=== PATIENT | female | born 1970 | race Caucasian/White ===

== ENCOUNTER 2021-10-19 18:27 | Emergency (ER) | payer MEDICARE, OTHER ==
[~2021-10-19] VITALS: Ht 162.6 cm; Wt 85.7 kg
[~2021-10-19 18:27] MED LIST: Amitriptyline H10 MG; Amlodipine Bes2.5 MG; BACLOFEN5 M1; BASAGLAR K100 UNIT/3 SC; BUSP5; FLUO10; GABA100; INSULANI; INSULIN AS100 UNIT/8 SC; LANTUS SOL100 UNIT/1 SC; NOVOLOG FL100 UNIT/3 SC; NOVOLOG100 UNIT/2
== END 2021-10-19 21:10 | disposition home or self-care (01) ==
LOC: ER 18:27
DX: S92.325A Nondisplaced fracture of second metatarsal bone, left foot, initial encounter for closed fracture (principal); S92.215A Nondisplaced fracture of cuboid bone of left foot, initial encounter for closed fracture; W01.0XXA Fall on same level from slipping, tripping and stumbling without subsequent striking against object, initial encounter; X50.1XXA Overexertion from prolonged static or awkward postures, initial encounter; E10.22 Type 1 diabetes mellitus with diabetic chronic kidney disease; N18.6 End stage renal disease; J45.909 Unspecified asthma, uncomplicated; Z88.2 Allergy status to sulfonamides; Z88.8 Allergy status to other drugs, medicaments and biological substances; Z88.1 Allergy status to other antibiotic agents; Z91.038 Other insect allergy status; Z91.040 Latex allergy status; Z88.5 Allergy status to narcotic agent; Z91.018 Allergy to other foods; Z79.899 Other long term (current) drug therapy; Z79.4 Long term (current) use of insulin
CPT/HCPCS: 73610; 73630; A9270

== ENCOUNTER 2021-10-22 07:59 | Emergency (ER) | payer MEDICARE, OTHER ==
[~2021-10-22] VITALS: Ht 167.6 cm; Wt 81.7 kg
[2021-10-22] MEDS ORDERED: CEPH500 PO (10:07)
== END 2021-10-22 10:48 | disposition home or self-care (01) ==
LOC: ER 07:59
DX: S92.215A Nondisplaced fracture of cuboid bone of left foot, initial encounter for closed fracture (principal); S92.325A Nondisplaced fracture of second metatarsal bone, left foot, initial encounter for closed fracture; S93.335A Other dislocation of left foot, initial encounter; E11.22 Type 2 diabetes mellitus with diabetic chronic kidney disease; N18.6 End stage renal disease; E11.40 Type 2 diabetes mellitus with diabetic neuropathy, unspecified; Z91.030 Bee allergy status; Z88.1 Allergy status to other antibiotic agents; Z88.5 Allergy status to narcotic agent; Z91.040 Latex allergy status; Z88.8 Allergy status to other drugs, medicaments and biological substances; Z91.018 Allergy to other foods; Z79.4 Long term (current) use of insulin
CPT/HCPCS: 73630

== ENCOUNTER 2022-02-27 12:26 | Inpatient (IN) | payer MEDICARE, OTHER ==
[~2022-02-27] VITALS: Ht 152.4 cm; Wt 85.1 kg
[~2022-02-27 12:26] MED LIST changes: -Amitriptyline H10 MG; +Amitriptyline H10 MG PO; -BACLOFEN5 M1; +BACLOFEN5 M1 PO; -BUSP5; +BUSP5 PO; +CEPH500 PO; -FLUO10; +FLUO10 PO
[2022-02-27 13:50] LABS: Calcium, Ionized (POC) 1.17 mmol/L (1.10-1.46); Chloride (POC) 111 mmol/L (98-108); Creatinine (POC) 5.6 mg/dL (0.6-1.0); Glucose (ISTAT POC) >700 mg/dL (70-99); Hemoglobin (POC) 13.9 g/dL (12.0-16.0); Potassium (POC) 4.9 mmol/L (3.5-5.5); Sodium (POC) 146 mmol/L (135-148); Total CO2 (POC) 15 mmol/L (21-32)
[2022-02-27 13:53] LABS: Source, Urine Clean Catch
[2022-02-27 13:59] LABS: BASOPHILS ABSOLUTE AUTO 0.01 K/mm3 (0.00-0.23); BASOPHILS PERCENT AUTO 0 % (0-2); EOSINOPHILS PERCENT AUTO 0 % (0-6); Hematocrit 43.2 % (33.0-51.0); Hemoglobin 13.1 g/dL (11.5-16.0); IMMATURE GRAN PERCENT AUTO 1 % (0-1); LYMPHOCYTES ABSOLUTE AUTO 1.64 K/mm3 (0.84-5.20); LYMPHOCYTES PERCENT AUTO 10 % (21-46); MONOCYTES ABSOLUTE AUTO 0.97 K/mm3 (0.16-1.47); MONOCYTES PERCENT AUTO 6 % (4-13); Mean Corpuscular HGB 29.8 pg (26.0-34.0); Mean Corpuscular HGB Conc 30.3 g/dL (31.5-36.5); Mean Corpuscular Volume 98 fL (80-100); NEUTROPHILS ABSOLUTE AUTO 13.08 K/mm3 (1.96-9.15); NEUTROPHILS PERCENT AUTO 83 % (41-73); Platelet Count 290 K/mm3 (150-400); RDW Coefficient Variation 14.1 % (11.7-14.2); Red Blood Cell Count 4.39 M/mm3 (3.80-5.20)
[2022-02-27 14:10] LABS: Bilirubin, Urine Neg (Neg); Blood, Urine 5+ (Neg); Glucose Qualitative, Urine 4+ (Neg); Ketones, Urine 2+ (Neg); Leukocyte Esterase, Urine Neg (Neg); Nitrite, Urine Neg (Neg); Protein, Urine 3+ (Neg); Specific Gravity, Urine 1.015 (1.003-1.022); Urobilinogen, Urine NORM (Normal)
[2022-02-27 14:16] LABS: International Normalized Ratio 1.07; Prothrombin Time Results 11.2 Sec (9.7-11.5)
[2022-02-27 14:22] LABS: Appearance, Urine Hazy (Clear); Color, Urine Pale Yellow (P-Yellow)
[2022-02-27 14:26] LABS: Amorphous Light (0-Heavy); Bacteria Mod /hpf; Red Blood Cells, Urine 0-2 /hpf (0-2); Squamous Epithelial Cells Rare /hpf (Few)
[2022-02-27 14:34] LABS: Base Excess Venous -17.1 mmol/L; Bicarbonate Venous 12.1 mmol/L (24.0-30.0); PCO2 Venous 39.4 mmHg (38-42); pH Blood Venous 7.11 (7.34-7.37)
[2022-02-27 14:36] LABS: Albumin, Blood 3.4 g/dL (3.4-5.0); Albumin/Globulin Ratio 0.7 (0.8-1.8); Bilirubin, Total 0.5 mg/dL (0.1-1.0); Calcium, Blood 9.4 mg/dL (8.5-10.1); Creatinine, Blood 5.56 mg/dL (0.40-1.00); Globulin, Blood 4.8 g/dL (2.2-4.0); Potassium, Blood 4.8 mmol/L (3.5-5.5); Total Protein, Blood 8.2 g/dL (6.4-8.2)
[2022-02-27 14:50] LABS: Creatine Kinase MB Index 0.8 (0.0-4.0)
[2022-02-27 16:22] LABS: Bun/Creatinine Ratio 23.7 (12.0-20.0); Calcium, Blood 8.9 mg/dL (8.5-10.1); Creatinine, Blood 5.41 mg/dL (0.40-1.00); Potassium, Blood 4.9 mmol/L (3.5-5.5)
--- NOTE | 2022-02-27 18:22 | NUR ---
PT TO ICU ROOM 3 AT 1635. PT ARRIVES ON 6 UNITS/HR INSULIN. PT MOANING, UNABLE TO ANSWER QUESTIONS OR FOLLOW COMMANDS. PER DR NORIEGA, PT IS NORMALLY ALERT AND ORIENTED-PT SEEN IN CLINIC BY DR NORIEGA. PT HAS BLACK BILE AROUND MOUTH AND TONGUE COATED, PT HAD ONE SMALL COFFEE GROUND EMESIS ON ARRIVAL. HYPOACTIVE BOWEL TONES, PAIN WITH PALPATION, L>R. TEMP JACOBSON PATENT AND DRAINING TO GRAVITY. CURRENT TEMP 97.0-ATTEMPTING TO WARM WITH BLANKETS. PT PULLING CARDIAC LEADS OFF, GOWN OFF, AND PULLED IV OUT-UNABLE TO VERBALLY DIRECT. PT PLACED IN BILATERAL SOFT WRIST RESTRAINTS, ATTEMPTING TO ESTABLISH ADDITIONAL IV ACCESS. PROTONIX GTT PLACED ON STANDBY UNTIL IV ACCESS ESTABLISHED. PT HAS RED RING AROUND BUTTOCK WITH BLISTERING, APPEARS TO BE FROM PROLONGED SITTING ON TOILET, PRESSURE INJURY TO RIGHT OUTER ANKLE WITH VARIOUS SCABS AND BRUISING. VSS AT THIS TIME. SEE FULL ADMISSION ASSESSMENT.
[2022-02-27 18:58] LABS: Bun/Creatinine Ratio 25.2 (12.0-20.0); Calcium, Blood 8.4 mg/dL (8.5-10.1); Creatinine, Blood 5.07 mg/dL (0.40-1.00)
[2022-02-27 19:10] LABS: Phosphorus, Blood 7.8 mg/dL (2.5-4.9)
[2022-02-27 20:30] LABS: Glucose, Blood 788 mg/dL (70-99)
[2022-02-27 21:59] LABS: Source, Urine Foley catheter
[2022-02-27 22:01] LABS: Bilirubin, Urine Neg (Neg); Blood, Urine 5+ (Neg); Glucose Qualitative, Urine 4+ (Neg); Ketones, Urine 2+ (Neg); Leukocyte Esterase, Urine Neg (Neg); Nitrite, Urine Neg (Neg); Protein, Urine 2+ (Neg); Specific Gravity, Urine 1.015 (1.003-1.022); Urobilinogen, Urine NORM (Normal)
[2022-02-27 22:08] LABS: Appearance, Urine Hazy (Clear); Color, Urine Yellow (P-Yellow)
[2022-02-27 22:09] LABS: Amorphous Mod (0-Heavy); Bacteria Few /hpf; Mucus Light (0-Heavy); Red Blood Cells, Urine 0-2 /hpf (0-2); Squamous Epithelial Cells Few /hpf (Few)
[2022-02-27 22:44] LABS: Glucose, Blood 641 mg/dL (70-99)
[2022-02-28 00:17] LABS: Bun/Creatinine Ratio 22.8 (12.0-20.0); Calcium, Blood 8.6 mg/dL (8.5-10.1); Creatinine, Blood 5.56 mg/dL (0.40-1.00)
[2022-02-28 01:27] LABS: Glucose, Blood 533 mg/dL (70-99)
[2022-02-28 03:59] LABS: BASOPHILS ABSOLUTE AUTO 0.01 K/mm3 (0.00-0.23); BASOPHILS PERCENT AUTO 0 % (0-2); EOSINOPHILS PERCENT AUTO 0 % (0-6); Hematocrit 34.7 % (33.0-51.0); Hemoglobin 11.7 g/dL (11.5-16.0); IMMATURE GRAN ABSOLUTE AUTO 0.03 K/mm3 (0.00-0.10); IMMATURE GRAN PERCENT AUTO 0 % (0-1); LYMPHOCYTES ABSOLUTE AUTO 1.32 K/mm3 (0.84-5.20); LYMPHOCYTES PERCENT AUTO 11 % (21-46); MONOCYTES ABSOLUTE AUTO 0.77 K/mm3 (0.16-1.47); MONOCYTES PERCENT AUTO 6 % (4-13); Mean Corpuscular HGB 30.2 pg (26.0-34.0); Mean Corpuscular HGB Conc 33.7 g/dL (31.5-36.5); Mean Platelet Volume 11.4 fL (9.1-12.4); NEUTROPHILS ABSOLUTE AUTO 10.07 K/mm3 (1.96-9.15); NEUTROPHILS PERCENT AUTO 83 % (41-73); Platelet Count 215 K/mm3 (150-400); RDW Standard Deviation 45.8 fL (35.1-46.3); Red Blood Cell Count 3.88 M/mm3 (3.80-5.20)
[2022-02-28 04:01] LABS: Mean Corpuscular Volume 89 fL (80-100)
[2022-02-28 04:20] LABS: Bun/Creatinine Ratio 23.3 (12.0-20.0); Calcium, Blood 8.6 mg/dL (8.5-10.1); Creatinine, Blood 5.57 mg/dL (0.40-1.00)
--- NOTE | 2022-02-28 06:08 | NUR ---
SHIFT SUMMARY: PT. REMAINED STABLE OVERNIGHT, LEVO WAS STARTED FOR LOW BP BUT WAS ABLE TO BE TURNED OFF THIS AM. PT. IS STILL VERY CONFUSED AND UNABLE TO ANSWER ANY ORIENTATION QUESTIONS. PT. HAD MINIMAL URINE OUTPUT IN JACOBSON CATHETER WHICH CORRELATES WITH LABS. PT. IS SATTING ABOVE 95% ON RA. INSULIN DRIP IS STILL ON AT 6, BUT BLOOD GLUCOSE HAS BEEN TRENDING DOWN AT A STABLE RATE AND IS NOW BELOW 500. PT. IS RESTING COMFORTABLY AT THIS TIME.
[2022-02-28 08:36] LABS: Bun/Creatinine Ratio 21.9 (12.0-20.0); Calcium, Blood 8.3 mg/dL (8.5-10.1); Creatinine, Blood 5.65 mg/dL (0.40-1.00); Potassium, Blood 3.7 mmol/L (3.5-5.5)
--- NOTE | 2022-02-28 09:48 | NUR ---
ASSUMED CARE OF PT. PT ALERT TO NAME, FAILS TO TRACK MOVEMENT, RESPOND TO QUESTIONS OR FOLLOW COMMANDS. PT REMAINS IN BILATERAL SOFT WRIST RESTRAINTS D/T PULLING AT LINES/CORDS AND DISROBING. INSULIN GTT @ 5 UNITS/HR, D51/2 STARTED PER EMAR ORDER. PROTONIX GTT INFUSING, NO EVIDENCE OF GI BLEED AT THIS TIME. PLAN FOR DIALYSIS CATH PLACEMENT WITH DIALYSIS THIS AFTERNOON. VSS AT THIS TIME. SEE FULL SHIFT ASSESSMENT.
[2022-02-28 10:04] LABS: Creatine Kinase MB 12.2 ng/mL (0.0-3.6)
[2022-02-28 10:27] LABS: Creatine Kinase MB Index 0.6 (0.0-4.0)
--- NOTE | 2022-02-28 12:31 | NUR ---
PT'S SISTER (DANIEL) CALLED REQUESTING UPDATE ON PT'S STATUS. PER SISTER, SHE AND PT HAVE DISCUSSED DIALYSIS EXTENSIVELY AND PT HAS BEEN CLEAR IN SAYING THAT SHE DOES NOT WANT [facility] [employer] [employer] DIALYSIS.
[2022-02-28 12:40] LABS: Bun/Creatinine Ratio 20.9 (12.0-20.0); Creatinine, Blood 5.97 mg/dL (0.40-1.00)
--- NOTE | 2022-02-28 16:20 | NUR ---
PT MORE ALERT THIS AFTERNOON, PT NODS HEAD YES/NO IN RESPONSE TO QUESTIONS. PICC PLACED TO RITO, TRIALYSIS CATH PLACED OVER RIGHT FEMORAL CENTRAL LINE. DIALYSIS NOTIFIED OF SUCCESSFUL LINE PLACEMENT.
--- NOTE | 2022-02-28 17:35 | NUR ---
SHIFT SUMMARY PT'S MENTATION IMPROVING. ABLE TO TAKE BILATERAL SOFT WRIST RESTRAINTS OFF PT IS FOLLOWING DIRECTIONS AND IS NOT PULLING AT LINES/CORDS/DRESSING. PT IS STILL NOT RESPONDING VERBALLY BUT IS FOLLOWING COMMANDS AND NODDING YES/NO. WEAK COUGH WITH MODERATE THICK SPUTUM, ATTEMPTING TO COLLECT FOR SPUTUM SAMPLE. PT IS CURRENTLY RECEIVING DIALYSIS, TOLERATING WELL. D5W 1/2NS @ 125 ML/HR, INSULIN @4 UNITS/HR, PROTONIX GTT@ 10 ML/HR. VSS T/O SHIFT. WILL REPORT TO ONCOMING NURSE.
--- NOTE | 2022-02-28 18:22 | NUR ---
Pt in ICU some eye opening tryin to open eyes and reposnd. Ashen and frail. Question family struggling pt stated she did not want [facility] dialysis. Review of her needs by sphysician and staff. P may benefit from some treatment and care. Hope is she may need it temporarily goal is for enough improvment that she can participate in decision. Goal is better comfort and increased mental statsu and metabolic stability. will review code status and support family.
[2022-02-28 19:11] LABS: Albumin, Blood 2.4 g/dL (3.4-5.0); Anion Gap 7 mmol/L (6-16); Blood Urea Nitrogen 71 mg/dL (8-24); Bun/Creatinine Ratio 18.6 (12.0-20.0); CO2, Blood 29 mmol/L (21-32); Calcium, Blood 7.9 mg/dL (8.5-10.1); Chloride, Blood 117 mmol/L (98-108); Creatinine, Blood 3.81 mg/dL (0.40-1.00); Glomerular Filtration Rate 14 (60-); Glucose, Blood 190 mg/dL (70-99); Potassium, Blood 3.6 mmol/L (3.5-5.5); Sodium, Blood 153 mmol/L (136-145)
[2022-02-28 19:12] LABS: Phosphorus, Blood 3.4 mg/dL (2.5-4.9)
--- NOTE | 2022-02-28 20:12 | NUR ---
SHIFT ASSESSMENT ASSUMED CARE OF PT @ 1900. REPORT RECEIVED FROM CHUCK CHAUHAN. PT ALERT IN BED RECEIVING DIALYSIS, FOLLOWING SIMPLE COMMANDS, NOT RESPONDING VERBALLY. PT TOLERATING ORAL CARE, BUT UNABLE TO OBTAIN A SPUTUM SAMPLE AT THIS TIME. TEMP PROBE JACOBSON PATENT, DRAINING SCANT AMNT OF YELLOW URINE. NO BM. D5W 1/2NS @ 125, INSULIN @ 3U/HR, AND PROTONIX GTT @ 10ML/HR. VSS. WILL MONITOR CLOSELY.
[2022-03-01 04:13] LABS: BASOPHILS ABSOLUTE AUTO 0.01 K/mm3 (0.00-0.23); BASOPHILS PERCENT AUTO 0 % (0-2); EOSINOPHILS ABSOLUTE AUTO 0.04 K/mm3 (0.00-0.68); EOSINOPHILS PERCENT AUTO 0 % (0-6); Hematocrit 28.6 % (33.0-51.0); Hemoglobin 9.6 g/dL (11.5-16.0); IMMATURE GRAN ABSOLUTE AUTO 0.02 K/mm3 (0.00-0.10); IMMATURE GRAN PERCENT AUTO 0 % (0-1); LYMPHOCYTES ABSOLUTE AUTO 2.87 K/mm3 (0.84-5.20); LYMPHOCYTES PERCENT AUTO 30 % (21-46); MONOCYTES ABSOLUTE AUTO 0.54 K/mm3 (0.16-1.47); MONOCYTES PERCENT AUTO 6 % (4-13); Mean Corpuscular HGB 30.4 pg (26.0-34.0); Mean Corpuscular HGB Conc 33.6 g/dL (31.5-36.5); Mean Corpuscular Volume 91 fL (80-100); Mean Platelet Volume 10.9 fL (9.1-12.4); NEUTROPHILS ABSOLUTE AUTO 5.95 K/mm3 (1.96-9.15); NEUTROPHILS PERCENT AUTO 63 % (41-73); Platelet Count 114 K/mm3 (150-400); RDW Coefficient Variation 14.4 % (11.7-14.2); RDW Standard Deviation 47.8 fL (35.1-46.3); Red Blood Cell Count 3.16 M/mm3 (3.80-5.20); White Blood Cell Count 9.43 K/mm3 (4.00-11.30)
[2022-03-01 04:28] LABS: Bun/Creatinine Ratio 17.7 (12.0-20.0); Creatinine, Blood 5.14 mg/dL (0.40-1.00); Magnesium, Blood 2.5 mg/dL (1.6-2.4); Phosphorus, Blood 4.2 mg/dL (2.5-4.9); Potassium, Blood 3.2 mmol/L (3.5-5.5)
--- NOTE | 2022-03-01 06:03 | NUR ---
SHIFT SUMMARY PT REMAINS ALERT TO PERSON, SLOWLY CLEARING THE NIGHT CARRIED ON. WILL RESPOND WITH 1-2 WORDS, MOVING EXTREMITIES MORE, REMAINS WEAK. INSULIN GTT CONTINUES PT IS NPO, CURRENTLY @ 5U/HR. INDIRA parker 200ML UO THIS SHIFT. NO BM. NO OTHER ACUTE CHANGES NOTED. WILL MONITOR CLOSELY.
--- NOTE | 2022-03-01 07:31 | NUR ---
TOOK OVER CARE OF PT AT 0710, PT HAS A PROTONIX GTT, D5 1/2 NS RUNNING AT 125, AND INSULIN GTT AT 5UNITS. PT RESTING ON RA.
--- NOTE | 2022-03-01 08:29 | NUR ---
NOTIFEID OF POTASSIUM LAB.
--- NOTE | 2022-03-01 18:33 | NUR ---
SUMMARY NEURO: PT FOLLOWING COMMANDS IN ALL EXTREMETIES. NODS HEAD TO QUESTIONS WITH SOME SHORT WORDS. PT MORE LETHARGIC AFTER DIALYSIS. PER PT THEY HAVE MS, BUT WALKS AT BASELINE. LUNGS; BASES DIMINISHED BUT ON RA. CARDIAC: NSR TO ST. +1 EDEMA BLE. PULSES PRESENT. GI: PT IS NPO, HYPOACTIVE BOWEL SOUNDS. SCANT RED BLOOD FROM RECTUM- NOTIFIED. ; JACOBSON IN PLACE. 275ML TOTAL OUTPUT FOR THIS SHIFT. PT HAD DIALYSIS TODAY. SKIN: RT ANKLE WOUND HAS AN ESCHAR PLATE FORMED, SURROUNDED BY A RING OF PURULENT DRAINAGE, REDNESS AND SWELLING. CHG BATH COMPLETED. INSULIN DRIP AND D51/2 NS AT 125 CONTINUED. VERIFIED WITH PROVIDER TO NOT BRIDGE OR ADJUST FLUIDS. PROTONIX GTT CONTINUES. NO POTASSIUM REPLACED.
--- NOTE | 2022-03-01 20:58 | NUR ---
ASSUMED CARE. ALERT, NON-VERBAL, OCCATIONALLY WILL NOD HEAD YES OR NO. DOES NOT ALWAYS FOLLOW COMMANDS. GRIPPED HAND ON THE RIGHT ONLY, DOES NOT MOVE BLE. HAS HX:MS WHEELCHAIR BOUND. TRACKS YOU AROUND THE ROOM. BS 228, INSULIN AT 6 UNITS. D5 1/2 NS AT 125ML/HR. PROTONIX GTT AT 10ML/HR. LS CLEAR MILD COUGH, DRY. SINUS ON MONIOR. BLISTER NOTED TO BILATERAL BUTTOCKS. DRESSING APPLILED TO RIGHT ANKLE AREA DUE TO SCABBED RED ULCER. REPOSITIONED, ELEVATED BLE ON LIMBS. WILL CONTINUE TO MONITOR.
[2022-03-02 03:30] LABS: BASOPHILS ABSOLUTE AUTO 0.01 K/mm3 (0.00-0.23); BASOPHILS PERCENT AUTO 0 % (0-2); EOSINOPHILS ABSOLUTE AUTO 0.24 K/mm3 (0.00-0.68); EOSINOPHILS PERCENT AUTO 3 % (0-6); Hematocrit 27.5 % (33.0-51.0); Hemoglobin 8.9 g/dL (11.5-16.0); IMMATURE GRAN ABSOLUTE AUTO 0.04 K/mm3 (0.00-0.10); IMMATURE GRAN PERCENT AUTO 1 % (0-1); LYMPHOCYTES ABSOLUTE AUTO 2.69 K/mm3 (0.84-5.20); LYMPHOCYTES PERCENT AUTO 32 % (21-46); MONOCYTES ABSOLUTE AUTO 0.45 K/mm3 (0.16-1.47); MONOCYTES PERCENT AUTO 5 % (4-13); Mean Corpuscular HGB 29.7 pg (26.0-34.0); Mean Corpuscular HGB Conc 32.4 g/dL (31.5-36.5); Mean Corpuscular Volume 92 fL (80-100); Mean Platelet Volume 11.2 fL (9.1-12.4); NEUTROPHILS ABSOLUTE AUTO 4.89 K/mm3 (1.96-9.15); NEUTROPHILS PERCENT AUTO 59 % (41-73); Platelet Count 96 K/mm3 (150-400); RDW Coefficient Variation 13.7 % (11.7-14.2); RDW Standard Deviation 46.2 fL (35.1-46.3); White Blood Cell Count 8.32 K/mm3 (4.00-11.30)
[2022-03-02 03:46] LABS: Calcium, Blood 7.9 mg/dL (8.5-10.1); Creatinine, Blood 3.75 mg/dL (0.40-1.00); Phosphorus, Blood 2.5 mg/dL (2.5-4.9); Potassium, Blood 3.4 mmol/L (3.5-5.5)
--- NOTE | 2022-03-02 05:58 | NUR ---
SHIFT SUMMARY: ALERT, FLAT AFFECT, NON-VERBAL AT TIMES, SPEAKS 1-2 WORDS OCCATIONALLY. MS AT BASELINE, DOES NOT MOVE BLE. MINIMAL MOVEMENT TO BUE. FOLLOWS DIRECTIONS. LS CLEAR, ON RA. RESP E/U. SINUS WITH RATE OF 90'S. STARTED TO BECOME HYPERTENSIVE AROUND 0400, HYDRALAZINE GIVEN. ABD SOFT, NON-TENDER. SCANT AMOUNT OF BLOODY DRAINAGE FROM ANUS, NO BM. JACOBSON PATENT OUTPUT 550. SKIN WITH BLISTERS STILL INTACT ON BOTTOM, AND PRESSURE ULCER TO RIGHT ANKLE, DRESSING INTACT. POTASSIUM REPLACEMENT INFUSING FOR POTASSIUM OF 3.4. BLOOD SUGARS DOWN TO THE 150-160'S ON 1-2 UNITS OF INSULIN GTT. PROTONIX STILL INFUSING ALONG WITH D5 1/2 NS. WILL REPORT TO DAYSHIFT.
--- NOTE | 2022-03-02 10:00 | NUR ---
PT ALERT, ORIENTED TO SELF AND CAN FOLLOW SOME SIMPLE COMMANDS. ONLY SAYS ONE WORD HERE AND THERE OTHERWISE HAS A BLANK STARE. SOMETIMES SHE GIGGLES AT RN WITH NO VERBAL INTERACTION. STILL ON D5 1/2 NS WITH INSULIN GTT. WILL BE EXPLORING DOBHOFF OPTION TODAY PT IS NOT SAFE TO EAT OR DRINK YET.
[2022-03-02 12:56] LABS: Hematocrit 28.9 % (33.0-51.0); Hemoglobin 9.4 g/dL (11.5-16.0)
--- NOTE | 2022-03-02 18:26 | NUR ---
SUMMARY PT ALERT AND ORIENTED TO PERSON. WILL ONLY STATE ONE WORD EVERY NOW AND THEN. TITRATED OFF INSULIN GTT AND D5 1/2 NS. DOBHOFF PLACED TODAY FOR NUTRITION AND FREE WATER. PT NOT ABLE TO SWALLOW YET, WHEN GIVEN WATER SHE HOLDS IT IN MOUTH BEFORE EVENTUALLY SWALLOWING. PT GOT DIALYSIS TODAY. NO OTHER CHANGES.
--- NOTE | 2022-03-02 19:43 | NUR ---
DOCTOR OMAIRA CALLED TO CLARIFY INSULIN ORDERS. CONTINUE HUMALOG 5 UNITS Q6 HR ORDERED. AM LABS ORDERED.
--- NOTE | 2022-03-02 20:38 | NUR ---
PATIENT AWAKE, MAKES EYE CONTACT SAID ART WHEN I INTRODUCED MYSELF, BUT ONLY LAUGHED WHEN ASKED OTHER QUESTIONS. SAYING OUCH WHEN LEGS REPOSITIONED. GENERALIZED WEAKNESS. INCONSISTENT WITH FOLLOWING DIRECTIONS. PROTONIX DRIP CONTINUES. DOBHOFF IN PLACE TO RIGHT NARE AT 72, WITH GLUCERNA AT 20 CC/HR AND WATER 100 CC Q4HR GOAL RATE IS 40 CC/HR. TRIALYSIS CATH RIGHT GROIN DRESSING CD&I. BILAT WRIST RESTRAINTS OFF, PATIENT NOT REACHING FOR LINES AND TUBES AT THIS TIME.
--- NOTE | 2022-03-02 22:45 | NUR ---
DOCTOR CAROLYN IN TO SEE PATIENT, CHANGED WATER FLUSH PER DOBHOFF TO 150 CC Q4HR.
--- NOTE | 2022-03-03 00:24 | NUR ---
PATIENT AWAKE APPEARS TO BE WATCHING TV. PATIENT NOT CONSISTENT WITH FOLLOWING DIRECTIONS. TUBE FEEDING INCREASED TO GOAL RATE OF 40 CC/HR.
[2022-03-03 01:08] LABS: HBSAG SCREEN Negative (Negative); HCV AB <0.1 (0.0-0.9); HEP A AB, IGM Negative (Negative); HEP B CORE AB, IGM Negative (Negative)
--- NOTE | 2022-03-03 01:20 | NUR ---
PATIENT COUGHING AND GAGGING, MAKING SOUNDS LIKE SHE IS CLEARING HER THROAT. ZOFRAN GIVEN AND TUBE FEEDING RATE DECREASED TO 30 CC/HR
--- NOTE | 2022-03-03 03:04 | NUR ---
PATIENT STARTING TO GAG AND APPEARS TO HAVE NAUSEA. PATIENT NODDING YES WHEN ASKED IF FEELING SICK TO HER STOMACH. TUBE FEEDING TURNED DOWN TO 20 CC/HR.
[2022-03-03 04:20] LABS: BASOPHILS PERCENT AUTO 0 % (0-2); EOSINOPHILS PERCENT AUTO 5 % (0-6); Hematocrit 27.6 % (33.0-51.0); IMMATURE GRAN ABSOLUTE AUTO 0.05 K/mm3 (0.00-0.10); IMMATURE GRAN PERCENT AUTO 1 % (0-1); LYMPHOCYTES ABSOLUTE AUTO 1.88 K/mm3 (0.84-5.20); LYMPHOCYTES PERCENT AUTO 29 % (21-46); MONOCYTES ABSOLUTE AUTO 0.55 K/mm3 (0.16-1.47); MONOCYTES PERCENT AUTO 8 % (4-13); Mean Corpuscular HGB 29.7 pg (26.0-34.0); Mean Corpuscular HGB Conc 32.6 g/dL (31.5-36.5); Mean Corpuscular Volume 91 fL (80-100); Mean Platelet Volume 11.7 fL (9.1-12.4); NEUTROPHILS PERCENT AUTO 58 % (41-73); Platelet Count 89 K/mm3 (150-400); RDW Coefficient Variation 13.2 % (11.7-14.2); RDW Standard Deviation 44.1 fL (35.1-46.3); Red Blood Cell Count 3.03 M/mm3 (3.80-5.20); White Blood Cell Count 6.58 K/mm3 (4.00-11.30)
[2022-03-03 04:41] LABS: Anion Gap 7 mmol/L (6-16); Blood Urea Nitrogen 38 mg/dL (8-24); Bun/Creatinine Ratio 14.9 (12.0-20.0); CO2, Blood 27 mmol/L (21-32); Calcium, Blood 8.1 mg/dL (8.5-10.1); Chloride, Blood 109 mmol/L (98-108); Creatinine, Blood 2.55 mg/dL (0.40-1.00); Glomerular Filtration Rate 22 (60-); Glucose, Blood 281 mg/dL (70-99); Phosphorus, Blood 1.9 mg/dL (2.5-4.9); Sodium, Blood 143 mmol/L (136-145)
--- NOTE | 2022-03-03 06:29 | NUR ---
SUMMARY PATIENT AWAKE, FOLLOWING SIMPLE DIRECTIONS. AT TIMES VERBALIZING 1-2 WORDS, BUT CONSISTENT. NO MOVEMENT SEEN IN LEGS. VERY WEAK ARMS. DOBHOFF IN PLACE WITH GLUCERNA AT 20 CC/HR, WITH WATER 150 CC Q4HR. ATTEMPTING TO INCREASE TUBE FEEDING AND PATIENT START HAVING NAUSEA WITH GAGGING AND COUGHING. FREQUENT ORAL CARE DONE T/O NIGHT, CONTINUES TO HAVE BLACK ON BACK OF TONGUE. INSULIN DRIP REMAINS OFF. PROTONIX DRIP CONTINUES.
--- NOTE | 2022-03-03 07:25 | NUR ---
ASSUMED CARE: PT RESTING QUIELTY IN BED. SINUS TAC AT 102 ON TELE. ON RA. DOBHOFF IN PLACE WITH TF AT 20 DUE TO NOT TOLERATING INCREASED RATE. PT OCCASIONALLY SAYS WORDS. THUMBS UP TO STAFF DURING BEDSIDE REPORT. RESIDENT AT BEDSIDE AT THIS TIME. DISCUSSED WITH HIM THAT PT DOES NOT TOLERATE INCREASED TF RATE. ALSO ASKED ABOUT STATUS CHANGE WHICH HE SAID HE WOULD REVIEW.
--- NOTE | 2022-03-03 10:33 | NUR ---
DRS ROUNDED ON PT AND STATE THAT PT'S MENTAL STATUS HAS IMPROVED SINCE YESTERDAY. PT ASKING IF SHE CAN EAT. DRS ORDERED SPEECH EVALUATION TO DETERMINE DUE TO PT'S DOBHOFF PLACEMENT AND HISTORY OF ENCEPHALOPATHY. DRS AWARE THAT PT WAS UNABLE TO TOLERATE ADVANCEMENT OF TUBE FEED. DIETITIAN CONSULT DONE. SPOKE WITH DIETITIAN ABOUT CHANGES TO BE MADE TO TF. DIETITIAN REQUESTS LEAVING DOBHOFF IN PLACE UNTIL WE KNOW IF PT CAN TOLERATE ORAL INTAKE. DIALYSIS AT BEDSIDE AT THIS TIME.
--- NOTE | 2022-03-03 18:13 | NUR ---
PT TRANSFERRED TO PCU 4 VIA CHAIR. REPORT GIVEN TO DIOGENES WOODS. NO ACUTE NEEDS OR CONCERNS AT THIS TIME
--- NOTE | 2022-03-03 19:12 | NUR ---
TRANSFER SUMMARY: PATIENT IS IN NO SIGN OF ACUTE DISTRESS. PATIENT IS RESTING IN RECLINER, SCD'S CURRENLTY OFF AT THIS TIME, RECOMMEND TO NIGHT FOR PLACEMENT IF APPROPRATE. PATIENT TF RUNNING, PROTONIX DRIP AND ZOSYN. PATIENT HAS BEEN STABLE VS WOOD, IS ON RA CURELNTY AT 100%. CHG BATH WAS DONE BY ICU NURSE FOR THE DAY. PICC IN RITO AND RIGHT FEMORAL DIALYSIS TEM PORT CDI. PATIENT ALERT AND ORIENTED X1, PATIENT DENIES CHEST PAIN OR SOB AT THIS TIME. WILL CONTINUE TO MONITOR UNTIL SHIFT CHANGE.
--- NOTE | 2022-03-04 00:23 | NUR ---
UPDATE PCT CALLED THIS RN TO ROOM. DOBHOFF WAS PULLED OUT BY PATIENT. CALL PLACED TO RESIDENT REGARDING WHETHER OR NOT TO PLACE NEW DOBHOFF AND TO UPDATE WITH BLOOD SUGAR RESULTS >300. PLAN IS TO LEAVE DOBHOFF OUT AT THIS TIME AND REEVALUATE TOMORROW WITH DIETARY TO ADJUST TF OR FOR SPEECH THERAPY TO EVALUATE PATIENT AGAIN. MEDIACTED PER EMAR FOR 0000 INSULIN COVERAGE
[2022-03-04 05:26] LABS: Magnesium, Blood 2.6 mg/dL (1.6-2.4)
[2022-03-04 05:27] LABS: Bun/Creatinine Ratio 15.5 (12.0-20.0); Calcium, Blood 9.3 mg/dL (8.5-10.1); Creatinine, Blood 2.65 mg/dL (0.40-1.00); Phosphorus, Blood 1.3 mg/dL (2.5-4.9); Potassium, Blood 3.7 mmol/L (3.5-5.5)
--- NOTE | 2022-03-04 05:46 | NUR ---
SHIFT SUMMARY PATIENT ALERT, ORIENTED x1. ABLE TO ANSWER YES/NO QUESTIONS AND SPEAKS IN SHORT SENTENCES. PATIENT WILL LAUGH AND TALK ABOUT SOMETHING OFF TOPIC DURING SOME CONVERSATION. PATIENT DOES NOT KEEP ATTENTION ON CONVERSATION FOR LONG. PLEASANT AND COOPERATIVE WITH CARE. VSS, PATIENT REMAINS ON RA WITH O2 SAT >90%. HR 100s THIS SHIFT. PATIENT PULLED DOBHOFF OUT OVER NIGHT, SEE PREVIOUS NOTE. PATIENT UP TO CHAIR ALL SHIFT SHE STATES IT IS MORE COMFORTABLE FOR HER. JACOBSON IN PLACE DRAINING DARK YELLOW URINE TO GRAVITY. NO OTHER SIGNIFICANT CHANGES THIS SHIFT, WILL REPORT TO DAY SHIFT RN.
--- NOTE | 2022-03-04 07:45 | NUR ---
AM ASSESSMENT: Pt sitting up in chair at this time. Oriented to self only. Does answer some yes and no questions but also answers some questions with inappropriate answers. VSS. LS clear. BT positive. PUlses palp. HR reg. Dialysis port to R groin. PICC to R upper arm with protonix gtt running. Pt appears comfortable. Will place tab alarm. Call light in reach. Will monitor.
--- NOTE | 2022-03-04 13:17 | NUR ---
UPDATE: Pt worked with ST this am and was cleared for pureed diet. Tolerating well. PT was given bed bath earlier this AM with chlorahexadine wipes per protocol. Pt also had small brown BM that was soft and formed. No other changes at this time. Pt still up in chair and Tab alarm on. Call light in reach.
--- NOTE | 2022-03-04 18:17 | NUR ---
SHIFT SUMMARY: Pt has remained A/O to self only throughout the day. Does follow directions but does not answer orientation questions appropriatly. VSS throughout this shift. Pt was started on a puree, nectar thick diet. Pt eating only about 5-10% of lunch and dinner. CBG coverage per orders. Pt was able to get up to BSC with 2 person assist today and had small, brown, formed BM. Alvarado cath draining clear, yellow urine. No changes in R groin dialysis site or R PICC line site. Protonix gtt running. Pt has seemed very withdrawn and depressed. Pt has stated multiple times today that her dog recently. Will continue to provide emotional support No other changes this shift. Will report to night RN. Bed alarm on and call light in reach.
[2022-03-05 04:55] LABS: Hematocrit 27.1 % (33.0-51.0)
[2022-03-05 05:16] LABS: Magnesium, Blood 2.5 mg/dL (1.6-2.4)
[2022-03-05 05:17] LABS: Albumin, Blood 2.3 g/dL (3.4-5.0); Anion Gap 9 mmol/L (6-16); Blood Urea Nitrogen 44 mg/dL (8-24); Bun/Creatinine Ratio 15.3 (12.0-20.0); CO2, Blood 26 mmol/L (21-32); Calcium, Blood 8.8 mg/dL (8.5-10.1); Chloride, Blood 110 mmol/L (98-108); Creatinine, Blood 2.87 mg/dL (0.40-1.00); Glomerular Filtration Rate 19 (60-); Glucose, Blood 246 mg/dL (70-99); Phosphorus, Blood 3.8 mg/dL (2.5-4.9); Sodium, Blood 145 mmol/L (136-145)
--- NOTE | 2022-03-05 05:50 | NUR ---
SHIFT SUMMARY ASSUMED CARE OF PT AT 1900. PT IS A/OX2. PT KNOWS HERSELF, AND THIS CITY, AND SURROUNDINGS BUT NOT THE DATE OR WHY SHE IS HERE, DESPITE BEING REDIRECTED. LUNG SOUNDS CLEAR. HEART SOUNDS REGULAR. URINE CLEAR AND YELLOW. PT HAD SMALL BM THIS SHIFT. PT IS A 2P STAND PIVOT ASSIT TO BSC. PT ASKS FOR ICECHIPS AND WATER, EVEN AFTER EXPLAINING SPEECH EVALUTATION FINDINGS. PT WILL ASK TWICE IN SAME CONVERSATIONS, NOT REMEMBERING SHE ALREADY ASKED FOR IT.
--- NOTE | 2022-03-05 17:49 | NUR ---
ASSUMED CARE OF PT AT 0700. PT RESTING QUIETLY THIS AM. SPEECH THERAPY AT BEDSIDE FOR RE-EVAL AND DIET ADVANCED. PT TO HD AT 0845, HD UNABLE TO BE PERFORMED D/T HD CATH FAILURE, DR ROSE NOTIFIED BY THIS RN. DR HUFF IN TO SEE PT THIS AFTERNOON, NEW ORDERS RECEIVED. FSBS NOTED TO BE 200-300 TODAY, DISCUSSED WITH CARE TEAM, NEW ORDERS RECEIVED. PT ABLE TO WORK WITH PT/OT TODAY. PT'S SISER UPATED ON PT CONDITION VIA PHONE CALL. NO OTHER CHANGES TO PT CONDITION NOTED. SEE DOCUMENTED VS/ASSESSMENT. BED ALARM ON FOR SAFETY, CALL LIGHT IN REACH, WILL CONTINUE TO MONITOR AND GIVE REPORT TO NOC SHIFT RN.
[2022-03-06 04:28] LABS: Bun/Creatinine Ratio 15.4 (12.0-20.0); Creatinine, Blood 2.47 mg/dL (0.40-1.00); Magnesium, Blood 2.2 mg/dL (1.6-2.4); Phosphorus, Blood 2.9 mg/dL (2.5-4.9); Potassium, Blood 3.6 mmol/L (3.5-5.5)
--- NOTE | 2022-03-06 06:20 | NUR ---
SHIFT SUMMARY PT IS A&OX3, SHE IS UNABLE TO REMEMBER WHY SHE WAS BROUGHT TO THE HOSPITAL. SHE HAS BEEN ON RA ALL NIGHT W/ SP02 >93%, SR 80'S ON TELE, MOVES IND IN BED, 1P SBA TO BSC W/ FWW, AND IS CONT. PT HAS NO REPORTS OF ANGINA, SOB, NAUSEA, DIZZYNESS AND PAIN. PT HAS A HX OF FALLS SO BED ALARM IS ON, BED IS IN LOW, AND CALL LIGHT IS IN REACH. SHE TAKES HER MEDICATIONS CRUSHED IN APPLE SAUCE, AND HAS TO HAVE NECTAR THICKENED LIQUIDS W/O STRAWS. PT IS CURRENTLY RESTING. WILL CONTINUE TO MONITOR UNTIL REPORT IS GIVEN TO THE ONCOMING SHIFT RN. SEE NOTES FOR UPDATES.
--- NOTE | 2022-03-06 12:53 | NUR ---
Case Conference Note Attempted to see Pt. OT currently working with Pt. Pt's friend from [facility] Lizzeth is standing outside of Pt's room. Lizzeth reports Pt does not have any family locally and Pt lives at [facility] independently. Will F/U with Pt at a later time
--- NOTE | 2022-03-06 17:55 | NUR ---
ASSUMED CARE OF PT AT 0700. NO ACUTE EVENTS T/O THE SHIFT. PLACEMENT OF PERMACATH WILL BE DELAYED OVER THE WEEKEND AND PT'S KIDNEY FUNCTION WILL BE OBSERVED. PT WORKED WITH PT/OT/ST AND TOLERATED WELL. MENTATION APPEARS TO BE IMPROVING FURTHER, PT ALERT AND ORIENTED X3, USES CALL LIGHT FOR NEEDS, PT ABLE TO AMBULATE TO RESTROOM TODAY WITH ASSISTANCE. CALL LIGHT IN REACH, WILL CONTINUE TO MONITOR AND GIVE REPORT TO NOC SHIFT.
[2022-03-06] MEDS ORDERED: NEURONTIN300 MG PO (18:34)
[2022-03-06] MEDS ORDERED: NOVOLOG FL100 UNIT/3 (18:35)
[2022-03-06] MEDS ORDERED: BASAGLAR K100 UNIT/8 (18:35)
[2022-03-06] MEDS ORDERED: TRULICITY0.75 MG/01 (18:36)
[2022-03-06] MEDS ORDERED: LOSARTAN POTASS25 M2 PO (18:37)
[2022-03-06] MEDS ORDERED: TRAZ50 PO (18:38)
[2022-03-06 21:07] LABS: Hematocrit 24.9 % (33.0-51.0); Hemoglobin 8.4 g/dL (11.5-16.0)
--- NOTE | 2022-03-07 00:26 | NUR ---
WHEN TAKING 0000 VS, PT'S BP WAS 182/86-170/82. SHE WAS MEDICATED W/ HYDRALAZINE AND BP IS NOW 146/67. WILL CONTINUE TO MONITOR UNTIL SHIFT REPORT IS GIVEN TO THE ONCOMING SHIFT RN. SEE NOTES FOR UPDATES.
[2022-03-07 06:21] LABS: Hematocrit 24.4 % (33.0-51.0); Hemoglobin 8.3 g/dL (11.5-16.0)
--- NOTE | 2022-03-07 06:24 | NUR ---
SHIFT SUMMARY PT IS A&OX3; SHE STILL CAN NOT RECALL EVENTS THAT SENT HER TO THE HOSPITAL. SHE MOVES IND IN BED, AND REQUIRES 1-2P ASSIST W/ FWW FOR TX. PT HAS BEEN RESTING T/O THE NIGHT ON RA W/ SPO2 >90%, SHE HAS BEEN SITTING 80'S-90'S SR ON TELE, AND HAS HAD NO C/O ANGINA OR SOB. PT DID HAVE A HEADACHE THIS SHIFT AND AN ORDER OF TYLONAL WAS ORDERED AND GIVEN. HER HEADACHE WAS RELIEVED BY THE TYLONAL FOR A FEW HOURS. PT WAS HYPERTENSIVE MID SHIFT AND WAS MEDICATED PER EMAR, SEE PREVIOUS NOTE FOR MORE INFORMATION. PT HAS HER CALL LIGHT IN REACH, BED IN LOW, AND BED ALARM ON. WILL CONTINUE TO MONITOR UNTIL SHIFT REPORT IS GIVEN TO THE ONCOMING SHIFT RN. SEE NOTES FOR ANY UPDATES.
[2022-03-07 06:39] LABS: Albumin, Blood 2.1 g/dL (3.4-5.0); Anion Gap 6 mmol/L (6-16); Blood Urea Nitrogen 28 mg/dL (8-24); Bun/Creatinine Ratio 12.3 (12.0-20.0); CO2, Blood 27 mmol/L (21-32); Calcium, Blood 8.7 mg/dL (8.5-10.1); Chloride, Blood 108 mmol/L (98-108); Creatinine, Blood 2.27 mg/dL (0.40-1.00); Glomerular Filtration Rate 26 (60-); Glucose, Blood 249 mg/dL (70-99); Phosphorus, Blood 3.6 mg/dL (2.5-4.9); Potassium, Blood 3.5 mmol/L (3.5-5.5); Sodium, Blood 141 mmol/L (136-145)
[2022-03-07 08:09] LABS: HIV AB/P24 AG SCREEN Non Reactive (Non Reactive)
--- NOTE | 2022-03-07 14:00 | NUR ---
PT WEAK AND UNSTEADY ON FEET WHILE WALKING WITH WALKER TO THE RESTROOM THIS AM. PHYSICAL THERAPY IN ROOM THIS AFTERNOON PROVIDING ORTHOSTATICS. PT WNL WHEN LYING IN BED. WHEN SITTING UP BP DROPS SIGNIFICANTLY TO 80'S/50'S. WHEN STANDING FOR ONLY A FEW SECONDS PT BEGINS TO GET MORE DIZZY AND FAINT. DR ROSE ORDERED ANOTHER ROUND OF ORTHOSTATICS IN A FEW HOURS. WILL CONTINUE TO MONITOR AT THIS TIME.
[2022-03-07 14:29] LABS: Bun/Creatinine Ratio 11.9 (12.0-20.0); Calcium, Blood 8.6 mg/dL (8.5-10.1); Creatinine, Blood 2.26 mg/dL (0.40-1.00); Potassium, Blood 3.4 mmol/L (3.5-5.5)
--- NOTE | 2022-03-07 17:49 | NUR ---
END OF SHIFT SUMMARY A/O X3. PT HAS LITTLE MEMORY OF CURRENT INCIDENT THAT BROUGHT HER TO THE HOSPITAL. LUNG SOUNDS CLEAR BILATERALLY THROUGHOUT. HR WNL THROUGHOUT SHIFT. BP IS POSITIONAL. PT HAS MADE SEVERAL ATEMPTS TODAY TO WALK TO THE BATHROOM TO URINATE, EACH TIME PT FEELS DIZZY AND FAINT. ORTHOSTATIC HYPOTENSION APPARENT WITH 2 SEPERATE TESTS DONE MY PHYSICAL THERAPY AND NURSING STAFF. PT IS FINICKY WITH FOOD PREFERENCES. 0% OF BREAKFAST CONSUMED. 80% OF LUNCH, AND 90% OF DINNER. CBG'S IN 110'S MOST OF THE DAY. PT HAS BEEN USING THE BED GREENE FOR URINATING. NO BM THIS SHIFT. PT STATES SHE DOES NOT KNOW WHEN HER LAST BOWEL MOVEMENT WAS HOWEVER FEELS THAT IF SHE TAKES STOOL SOFTENERS THAT ARE ORDERED THAT SHE WILL HAVE VERY LOOSE STOOLS. WOUND CARE CONSULT DONE THIS SHIFT WITH RESULTS OF PRESSURE WOUND ON RIGHT ANKLE AND REBANDAGED C/D/I AT THIS TIME. BABY POWDER PROVIDED FOR TENDER SKIN UNDER BREASTS. HCG WIPE DOWN DONE THIS SHIFT. HD CATH REMOVED AROUND NOON WITH NO ISSUES, C/D/I WITH NO BLOOD SHOWING FROM AREA. HAIR WASHED AND COMBED THIS AFTERNOON. PT HAS LOST HER PRESCRIPTION GLASSES AND IS VERY HARD AT SEEING IN BOTH RIGHT AND LEFT EYES. WILL CONTINUE TO MONITOR PT UNTIL SHIFT CHANGE.
--- NOTE | 2022-03-07 17:56 | NUR ---
ORTHOSTATIC VITALS Pt laying for 5 minutes HR 104, BP 161/76 Pt sitting on edge of bed x 1 minute HR 111, BP 97/66 Pt standing, attempted for one minute HR 110, BP 56/43, pt stated she feels like she's passing out, assisted to safely sit on edge of bed. Results given to Dr Porter, plan for pt to received PCU monitoring tonight. Recheck H&H in AM.
[2022-03-08 04:04] LABS: Hematocrit 24.3 % (33.0-51.0); Hemoglobin 7.8 g/dL (11.5-16.0)
[2022-03-08 04:21] LABS: Anion Gap 5 mmol/L (6-16); Blood Urea Nitrogen 26 mg/dL (8-24); Bun/Creatinine Ratio 10.4 (12.0-20.0); CO2, Blood 27 mmol/L (21-32); Calcium, Blood 8.3 mg/dL (8.5-10.1); Chloride, Blood 108 mmol/L (98-108); Glomerular Filtration Rate 23 (60-); Glucose, Blood 258 mg/dL (70-99); Phosphorus, Blood 3.6 mg/dL (2.5-4.9); Potassium, Blood 4.2 mmol/L (3.5-5.5); Sodium, Blood 140 mmol/L (136-145)
--- NOTE | 2022-03-08 05:35 | NUR ---
SHIFT SUMMARY PT A&Ox4, CALLS AND COMMUNICATES NEEDS APPROPRIATELY. VSS, SpO2> 92% RA, SR-ST 80-100's. BP STABLE, PT REMAINED IN BED THIS SHIFT, NO EPISODES OF DIZZINESS. RIGHT FEMORAL HEMODIALYSIS CATHETER REMOVAL SITE C/D/I WITH NO BRUISING, BLEEDING PRESENT, PT DENIES HAVING ANY LOW BACK PAIN. PT WITH NO LOOSE OR TARRY STOOL. PT RESTED COMFORTABLY THROUGHOUT THE SHIFT, NO ACUTE EVENTS. WILL REPORT TO DAY SHIFT RN.
--- NOTE | 2022-03-08 10:07 | NUR ---
UPDATE PT AWAKE AND ALERT THIS AM. PT ANSWERING QUESTIONS APPROPRIATELY. HR NSR. PT DENIES ANY PAIN. PHYSICAL THERAPY IN TO WORK WITH PT. BP WHILE LYING IS 131/71. BP SITTING IS 85/62. PT DIZZY WITH SITTING AT EDGE OF BED. PT ASSISTED TO LAY BACK IN BED AND USE THE BEDPAN. WILL CONTINUE TO MONITOR CLOSELY
[2022-03-08 12:22] LABS: Hematocrit 25.6 % (33.0-51.0); Hemoglobin 8.5 g/dL (11.5-16.0)
--- NOTE | 2022-03-08 17:08 | NUR ---
SHIFT SUMMARY PT REMAINS ALERT AND ORIENTED. HR NSR. BP STABLE WHILE LYING, BUT ORTHOSTATICS ARE POSITIVE. O2 SATS REMAIN ABOVE 90% ON RA. PT HAS DENIED ANY PAIN THIS EVENING. HEADACHE HAS RESOLVED. PT REPOSITIONING HERSELF IN BED. PT DID NOT HAVE A BM THIS SHIFT, BUT HAS BEEN PASSING GAS. WILL CONTINUE TO MONITOR AND REPORT TO ONCOMING CHUCK
--- NOTE | 2022-03-08 19:18 | NUR ---
SHIFT CHANGE REPORT DAY SHIFT RN WAS INSTRUCTED BY PHYSICIAN TO HOLD BACLOFEN AND GABAPENTIN AND THAT THEY ARE TO BE HELD TONIGHT WELL. NO ORDERS PLACED AT THIS TIME.
[2022-03-09 04:09] LABS: Hematocrit 24.8 % (33.0-51.0); Hemoglobin 8.3 g/dL (11.5-16.0)
[2022-03-09 04:24] LABS: Albumin, Blood 2.1 g/dL (3.4-5.0); Anion Gap 7 mmol/L (6-16); Blood Urea Nitrogen 26 mg/dL (8-24); CO2, Blood 26 mmol/L (21-32); Calcium, Blood 8.8 mg/dL (8.5-10.1); Chloride, Blood 108 mmol/L (98-108); Creatinine, Blood 2.37 mg/dL (0.40-1.00); Glomerular Filtration Rate 24 (60-); Glucose, Blood 222 mg/dL (70-99); Potassium, Blood 4.6 mmol/L (3.5-5.5); Sodium, Blood 141 mmol/L (136-145)
--- NOTE | 2022-03-09 05:06 | NUR ---
SHIFT SUMMARY PT A&Ox4, CALLS AND SOMMUNICATES NEEDS APPROPRIATELY. VSS, SpO2> 92% RA, SR-ST 80-100. PT REMAINED IN BED THIS SHIFT, IND WITH REPOSITIONING IN BED. USED BEDPAN FOR VOIDS. DENIES EPISODES OF DIZZINESS OR FEELING LIGHTHEADED THIS SHIFT. PT's WITH HEADACHE EARLY THIS MORNING, MEDICATED PER EMAR. NO OTHER EVENTS, WILL REPORT TO DAY SHIFT RN.
--- NOTE | 2022-03-09 14:36 | NUR ---
UPDATE ORTHOSTATIC BLOOD PRESSURE TAKEN, WHILE LYING FLAT, BP 134/79 AND HR 100 WHILE SITTING, BP 102/66 AND HR 99 WHILE STANDING 61/52 AND HR [address] NOLEN. PT LYING BACK IN BED AND PRESSURE HAS COME BACK UP TO 105/67
--- NOTE | 2022-03-09 16:08 | NUR ---
UPDATE PT TO TRANSFER TO MEDICAL FLOOR. REPORT GIVEN TO MEDICAL FLOOR RN.
--- NOTE | 2022-03-09 16:33 | NUR ---
PT ARRIVED FROM PCU A TRANSFER TO MEDICAL FLOOR. PT IS ROOM AIR. NO TELE. C/O HEADACHE, DECLINED TYLENOL BECAUSE SHE "DOESN'T WANT TO BECOME DEPENDENT ON IT." DIMMED LIGHTS, CLOSED DOOR FOR UNINERRUPTED REST. PT HAS ORTHOSTATIC HYPOTENSION, SO HAS BEEN VOIDING EXCLUSIVELY ON BED GREENE. CONTINENT OF BOWEL/URINE. A & O X4. DR. NORIEGA ROUNDED ON PT VIA TELEHEALTH. VITAL SIGNS STABLE. PICC LINE TO RIGHT UPPER ARM. MECHANICAL SOFT DIET. ASPIRATION PRECAUTIONS. PT ORIENTED TO CALL LIGHT/NEED TO CALL AND NOT GET OUT OF BED WITHOUT STAFF ASSISTANCE. BED IN LOWEST POSITION, WILL CONTINUE TO MONITOR.
--- NOTE | 2022-03-09 17:13 | NUR ---
PT IS RESTING QUIETLY IN BED. VITAL SIGNS STABLE. NO ACUTE CHANGES. WILL CONTINUE TO MONITOR.
--- NOTE | 2022-03-09 18:23 | NUR ---
AMBULATION - RECOMMEND TWO PERSON ASSIST WITH GAITBELT TO BEDSIDE COMMODE. PT WAS ABLE TO TOLERATE STANDING AND PIVOTING TO BSC TO VOID.
--- NOTE | 2022-03-10 04:48 | NUR ---
HOSTAGE NEGOTIATOR SUMMARY: A&Ox4. PLEASANT AND COOPERATIVE WITH CARE. PRN APAP AT BEDTIME FOR C/O HEADACHE. 1-2PA PIVOT TRANSFER TO BSC. CONTINUES TO HAVE WEAKNESS AND DIZZINESS UPON SITTING UP. ENCOURAGED SLOW, INTENTIONAL MOVEMENTS. VOIDED TWICE T/O NIGHT. PICC RITO PATENT. WILL REPORT TO ONCOMING RN.
[2022-03-10 05:44] LABS: Hematocrit 25.2 % (33.0-51.0); Hemoglobin 8.3 g/dL (11.5-16.0)
[2022-03-10 06:16] LABS: Albumin, Blood 2.2 g/dL (3.4-5.0); Anion Gap 8 mmol/L (6-16); Blood Urea Nitrogen 23 mg/dL (8-24); Bun/Creatinine Ratio 11.2 (12.0-20.0); CO2, Blood 24 mmol/L (21-32); Calcium, Blood 8.7 mg/dL (8.5-10.1); Chloride, Blood 107 mmol/L (98-108); Creatinine, Blood 2.06 mg/dL (0.40-1.00); Glomerular Filtration Rate 29 (60-); Glucose, Blood 222 mg/dL (70-99); Magnesium, Blood 1.9 mg/dL (1.6-2.4); Phosphorus, Blood 4.5 mg/dL (2.5-4.9); Potassium, Blood 4.4 mmol/L (3.5-5.5); Sodium, Blood 139 mmol/L (136-145)
--- NOTE | 2022-03-10 18:05 | NUR ---
SHIFT SUMMARY; PATIENT IS NOW A STAND BY ASSIST TO THE BEDSIDE COMMODE USING A FWW. 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 SHE IS STILL ON TRACK TO GO TO SNF WHEN INSURANCE AUTH COMES IN. B/P IS ELEVATED THIS AFTERNOON AT 148 [address]. PATIENT DENIES ANY CP OR PRESSURE. LUNGS ARE DIM AND COARSE IN THE BASES SHE IS AO X 4. HER FRIEND BRINGS HER BOOT FOR HER LEFT FOOT AND PATIENT SAYS SHE WEARS IT AT HOME SINCE SHE BROKE HER LEFT ANKLE A FEW YEARS AGO. PATIENT HAS A COVID TEST ORDERED FOR BEFORE SHE IS DISCHARGED TO SNF. HER FACILITY DC WAS PUT IN BY THE RESIDENT TODAY AND WILL NEED TO BE UPDATED WITH CURRENT MEDICATIONS AT DC. WILL CONTINUE TO MONITOR THIS PATIENT CLOSELY UNTIL REPORT AND HAND OFF AT SHIFT CHANGE
[2022-03-10 20:58] LABS: SARS-Cov-2 (COVID-19) PCR, MMC NEGATIVE (NEGATIVE)
--- NOTE | 2022-03-11 04:23 | NUR ---
SHIFT SUMMARY PT C/O FULL BODY ITCHING, SPOKE TO HOSPITALIST WHO ORDERED ATARAX. COVID NASAL SWAB ADMINISTERED AND TEST CAME BACK NEGATIVE. PRN ATARAX IMPROVED ITCHING AND PT SLEPT COMFORTABLY T/O THE NIGHT. PT IS 1 SBA W FWW TO BSC, AOX4, VSS, PLEASANT AND COOPERATIVE WITH CARE.
--- NOTE | 2022-03-11 11:25 | NUR ---
PATIENT A&OX4. PLEASANT AND COOPERATIVE WITH CARE. USES CALL LIGHT APPROPRIATELY AND ABLE TO ADVOCATE FOR HER NEEDS. PATIENT DENIES CP/CHEST DISCOMFORT THIS SHIFT. LUNGS CLEAR T/O. DENIES PAIN/DISCOMFORT. BS THIS AM WAS 185. RECIEVED COVERAGE PER EMAR. VITAL SIGNS REVIEWED. PATIENT DISCHARGED TO [facility]. ATTEMPT TO CALL [facility] MULTIPLE TIMES TO GIVE REPORT. DONNA ANSWERED THE PHONE AND TOLD THIS RN THAT SHE IS GOING TO INFORMED THE NURSE WHO IS GETTING THE PATIENT. THIS RN WAS ON HOLD FOR ABOUT 25 MINUTES AND DID NOT SUCCESSFULLY SPOKE TO ANYONE REGARDING THE PATIENT COMING TO THEIR FACILITY. AURICULAR ACUPUNCTURIST WAS NOTIFIED REGARDING THIS MATTER.PATIENT DISCHARGE AROUND 1110 AND WAS [facility]SP[facility] DISCHARGED INSTRUCTIONS PACKET WAS GIVEN TO SITE SURVEYOR. DISCHARGE PACKET INCLUDING MEDICATION WAS FAXED TO [facility] BY VOLUNTEER ASSISTANT. ALL PATIENT PERSONAL BELONGINGS WERE SENT WITH THE PATIENT. POWER PICC WAS DC'D BY AURICULAR ACUPUNCTURISTCHUCK JACOB.
== END 2022-03-11 11:06 | DRG 871 ==
LOC: ER 12:26 → ICUE 15:30 → MEDS 15:30 → ICUW 15:30 → PCU 15:30 → ICUE 16:35 → PCU 03-03 18:02 → MEDS 03-09 16:18
PROVIDERS: Family Medicine; Family Medicine Adult Medicine; Hospitalist; Internal Medicine Nephrology; Physician Assistant; ADMIT Internal Medicine
PROC: 3E03329 Introduction of Other Anti-infective into Peripheral Vein, Percutaneous Approach (ICD-10-PCS; 2022-02-27)
PROC: 5A1D70Z Performance of Urinary Filtration, Intermittent, Less than 6 Hours Per Day (ICD-10-PCS; principal; 2022-02-28)
PROC: 02H633Z Insertion of Infusion Device into Right Atrium, Percutaneous Approach (ICD-10-PCS; 2022-02-28)
DX: A41.9 Sepsis, unspecified organism (principal); E10.10 Type 1 diabetes mellitus with ketoacidosis without coma; G92.8 Other toxic encephalopathy; N17.0 Acute kidney failure with tubular necrosis; K92.0 Hematemesis; M62.82 Rhabdomyolysis; N18.4 Chronic kidney disease, stage 4 (severe); K92.1 Melena; E87.0 Hyperosmolality and hypernatremia; E10.40 Type 1 diabetes mellitus with diabetic neuropathy, unspecified; Z20.822 Contact with and (suspected) exposure to COVID-19; G35 Multiple sclerosis; J45.909 Unspecified asthma, uncomplicated; T68.XXXA Hypothermia, initial encounter; E83.39 Other disorders of phosphorus metabolism; R65.20 Severe sepsis without septic shock; R45.1 Restlessness and agitation; Z78.1 Physical restraint status; I95.1 Orthostatic hypotension; D63.1 Anemia in chronic kidney disease; F41.9 Anxiety disorder, unspecified; E10.22 Type 1 diabetes mellitus with diabetic chronic kidney disease; Z90.89 Acquired absence of other organs; Z88.2 Allergy status to sulfonamides; Z88.1 Allergy status to other antibiotic agents; Z88.5 Allergy status to narcotic agent; Z88.8 Allergy status to other drugs, medicaments and biological substances; Z91.018 Allergy to other foods; Z79.2 Long term (current) use of antibiotics; Z79.4 Long term (current) use of insulin; Z79.899 Other long term (current) drug therapy
CPT/HCPCS: 36415; 36556; 36569; 51702; 70450; 71045; 80047; 80048; 80053; 80069; 80074; 81001; 82272; 82533; 82550; 82553; 82803; 82947; 83036; 83605; 83615; 83735; 84100; 85014; 85018; 85025; 85610; 85730; 86317; 86850; 86900; 86901; 87040; 87081; 87086; 87389; 92526; 92610; 93005; 93010; 94760; 96365-59; 96375-59; 97110; 97162; 97166; 97530; 97535; 99285-25; A9270; C1751; C1752; C9113; J0360; J1815; J2405; J2543; J2597; J3010; J3480; J7030; J7042; J7060; U0004

== ENCOUNTER 2022-04-16 05:36 | Emergency (ER) | payer MEDICARE, OTHER ==
[~2022-04-16] VITALS: Ht 162.6 cm; Wt 91.2 kg
[~2022-04-16 05:36] MED LIST changes: +BASAGLAR K100 UNIT/8; +LOSARTAN POTASS25 M2 PO; +NEURONTIN300 MG PO; +NOVOLOG FL100 UNIT/3; +TRAZ50 PO; +TRULICITY0.75 MG/01
[2022-04-16] MEDS ORDERED: AMLO10 PO (05:59)
[2022-04-16] MEDS ORDERED: MAGNESIUM OXID500 MG PO (06:06)
[2022-04-16] MEDS ORDERED: MELATONIN5 M1 PO (06:06)
[2022-04-16 06:13] LABS: BASOPHILS PERCENT AUTO 1 % (0-2); EOSINOPHILS PERCENT AUTO 5 % (0-6); Hematocrit 36.3 % (33.0-51.0); Hemoglobin 11.7 g/dL (11.5-16.0); IMMATURE GRAN ABSOLUTE AUTO 0.03 K/mm3 (0.00-0.10); IMMATURE GRAN PERCENT AUTO 0 % (0-1); LYMPHOCYTES PERCENT AUTO 38 % (21-46); MONOCYTES ABSOLUTE AUTO 0.57 K/mm3 (0.16-1.47); MONOCYTES PERCENT AUTO 6 % (4-13); Mean Corpuscular HGB 29.5 pg (26.0-34.0); Mean Corpuscular HGB Conc 32.2 g/dL (31.5-36.5); Mean Corpuscular Volume 91 fL (80-100); Mean Platelet Volume 10.7 fL (9.1-12.4); NEUTROPHILS ABSOLUTE AUTO 4.78 K/mm3 (1.96-9.15); NEUTROPHILS PERCENT AUTO 50 % (41-73); Platelet Count 346 K/mm3 (150-400); RDW Coefficient Variation 13.1 % (11.7-14.2); Red Blood Cell Count 3.97 M/mm3 (3.80-5.20); White Blood Cell Count 9.58 K/mm3 (4.00-11.30)
[2022-04-16 06:31] LABS: Albumin, Blood 3.5 g/dL (3.4-5.0); Albumin/Globulin Ratio 0.7 (0.8-1.8); Bilirubin, Total 0.3 mg/dL (0.1-1.0); Bun/Creatinine Ratio 7.8 (12.0-20.0); Calcium, Blood 9.5 mg/dL (8.5-10.1); Creatinine, Blood 2.56 mg/dL (0.40-1.00); Globulin, Blood 4.7 g/dL (2.2-4.0); Potassium, Blood 3.7 mmol/L (3.5-5.5); Total Protein, Blood 8.2 g/dL (6.4-8.2)
[2022-04-16 08:34] LABS: Source, Urine Clean Catch
[2022-04-16 08:39] LABS: Appearance, Urine Hazy (Clear); Bilirubin, Urine Neg (Neg); Blood, Urine 3+ (Neg); Color, Urine Yellow (P-Yellow); Glucose Qualitative, Urine 4+ (Neg); Ketones, Urine Neg (Neg); Leukocyte Esterase, Urine 2+ (Neg); Nitrite, Urine Neg (Neg); Protein, Urine 3+ (Neg); Specific Gravity, Urine 1.015 (1.003-1.022); Urobilinogen, Urine NORM (Normal)
[2022-04-16 08:50] LABS: White Blood Cells, Urine 50-100 /hpf (0-5)
[2022-04-16 08:51] LABS: Bacteria Many /hpf; Red Blood Cells, Urine 0-2 /hpf (0-2)
[2022-04-16 08:52] LABS: Squamous Epithelial Cells Many /hpf (Few)
[2022-04-16] MEDS ORDERED: CEPH500 PO (09:30)
== END 2022-04-16 10:32 | disposition home or self-care (01) ==
LOC: ER 05:36
PROVIDERS: Emergency Medicine
DX: R55 Syncope and collapse (principal); E86.1 Hypovolemia; N39.0 Urinary tract infection, site not specified; E11.22 Type 2 diabetes mellitus with diabetic chronic kidney disease; N18.5 Chronic kidney disease, stage 5; Z88.5 Allergy status to narcotic agent; Z91.040 Latex allergy status; Z88.8 Allergy status to other drugs, medicaments and biological substances; Z91.030 Bee allergy status; Z79.899 Other long term (current) drug therapy; Z79.4 Long term (current) use of insulin
CPT/HCPCS: 36415; 80053; 81001; 84484; 85025; 93005; 93010; J0696; J7030

== ENCOUNTER 2022-07-29 09:38 | Emergency (ER) | payer MEDICARE, OTHER ==
[~2022-07-29] VITALS: Ht 162.6 cm; Wt 86.2 kg
[~2022-07-29 09:38] MED LIST changes: +AMLO10 PO; +MAGNESIUM OXID500 MG PO; +MELATONIN5 M1 PO
[2022-07-29] MEDS ORDERED: OXYC5 PO (11:10)
== END 2022-07-29 11:17 | disposition home or self-care (01) ==
LOC: ER 09:38
DX: M25.522 Pain in left elbow (principal); E10.22 Type 1 diabetes mellitus with diabetic chronic kidney disease; N18.30 Chronic kidney disease, stage 3 unspecified; G35 Multiple sclerosis; Z79.899 Other long term (current) drug therapy; Z79.4 Long term (current) use of insulin
CPT/HCPCS: 73080; 99283-25; A9270

== ENCOUNTER 2023-01-22 20:15 | Emergency (ER) | payer MEDICARE, OTHER ==
[~2023-01-22] VITALS: Ht 162.6 cm; Wt 90.3 kg
[~2023-01-22 20:15] MED LIST changes: +OXYC5 PO
[2023-01-22 20:43] LABS: BASOPHILS ABSOLUTE AUTO 0.06 K/mm3 (0.00-0.23); BASOPHILS PERCENT AUTO 1 % (0-2); EOSINOPHILS ABSOLUTE AUTO 0.27 K/mm3 (0.00-0.68); EOSINOPHILS PERCENT AUTO 3 % (0-6); Hemoglobin 11.7 g/dL (11.5-16.0); IMMATURE GRAN ABSOLUTE AUTO 0.02 K/mm3 (0.00-0.10); IMMATURE GRAN PERCENT AUTO 0 % (0-1); LYMPHOCYTES ABSOLUTE AUTO 2.88 K/mm3 (0.84-5.20); LYMPHOCYTES PERCENT AUTO 26 % (21-46); MONOCYTES ABSOLUTE AUTO 0.72 K/mm3 (0.16-1.47); MONOCYTES PERCENT AUTO 7 % (4-13); Mean Corpuscular HGB 30.8 pg (26.0-34.0); Mean Corpuscular HGB Conc 33.4 g/dL (31.5-36.5); Mean Corpuscular Volume 92 fL (80-100); Mean Platelet Volume 10.3 fL (9.1-12.4); NEUTROPHILS ABSOLUTE AUTO 6.99 K/mm3 (1.96-9.15); NEUTROPHILS PERCENT AUTO 64 % (41-73); Platelet Count 272 K/mm3 (150-400); RDW Coefficient Variation 13.7 % (11.7-14.2); RDW Standard Deviation 44.4 fL (35.1-46.3); White Blood Cell Count 10.94 K/mm3 (4.00-11.30)
[2023-01-22 20:55] LABS: Albumin, Blood 3.6 g/dL (3.4-5.0); Albumin/Globulin Ratio 0.9 (0.8-1.8); Bilirubin, Total 0.3 mg/dL (0.1-1.0); Bun/Creatinine Ratio 8.1 (12.0-20.0); Calcium, Blood 9.1 mg/dL (8.5-10.1); Creatinine, Blood 3.1 mg/dL (0.40-1.00); Globulin, Blood 3.8 g/dL (2.2-4.0); Potassium, Blood 3.8 mmol/L (3.5-5.5); Total Protein, Blood 7.4 g/dL (6.4-8.2)
[2023-01-22] MEDS ORDERED: EPIPEN0.3 MG/0.3 IM (21:11)
[2023-01-22 22:45] VITALS: BP 168/75
== END 2023-01-22 23:07 | disposition home or self-care (01) ==
LOC: ER 20:15
PROVIDERS: Emergency Medicine
DX: T78.1XXA Other adverse food reactions, not elsewhere classified, initial encounter (principal); Z91.030 Bee allergy status; Z88.1 Allergy status to other antibiotic agents; Z91.040 Latex allergy status; Z88.2 Allergy status to sulfonamides; Z91.018 Allergy to other foods; Z79.899 Other long term (current) drug therapy; J45.909 Unspecified asthma, uncomplicated; N18.4 Chronic kidney disease, stage 4 (severe)
CPT/HCPCS: 80053; 85025; 93005; 93010; 96361; 96374; 99285-25; A9270; J1100; J2405; J7030

== ENCOUNTER → 2023-02-19 | Outpatient (CLI) | payer MEDICARE, OTHER ==
[~2023-02-19] MED LIST changes: +EPIPEN0.3 MG/0.3 IM
== END ==
LOC: LAB SHORT 08:43 → LAB 08:43
DX: N39.0 Urinary tract infection, site not specified (principal)
CPT/HCPCS: 87077; 87086; 87186